=== PATIENT | female | born 1990 | race Caucasian/White ===

== ENCOUNTER 2020-12-28 03:35 | Inpatient (IN) | payer BC ==
[2020-12-28] MEDS ORDERED: OXYTOCIN 10 UNIT/ML 1 ML VIAL IM PRN (04:54)
[2020-12-28] MEDS ORDERED: CARBOPROST TROMETHAMINE 250 MCG/ML 1 ML AMP IM PRN (04:54)
[2020-12-28] MEDS ORDERED: METHYLERGONOVINE 0.2 MG/ML 1 ML AMP IM PRN (04:54)
[2020-12-28] MEDS ORDERED: LIDOCAINE 0.5% (PF) 5 MG/ML (50 ML SDV) SQ PRN (04:54)
[2020-12-28] MEDS ORDERED: TERBUTALINE 1 MG/ML VIAL SQ PRN (04:54)
[2020-12-28] MEDS ORDERED: PENICILLIN G POTASSIUM 5,000,000 UNIT in DEXTROSE 5% IN WATER 100 ML IVPB ONE ×2 (05:00)
[2020-12-28] MEDS: LACTATED RINGERS 1,000 ML IV SCH ×2 (05:01→09:08)
[2020-12-28 05:42] LABS: Basophils % (A) 0 %; Eosinophils # (A) 0.1 k/uL (0-0.7); Eosinophils % (A) 1 %; HCT 36.1 % (34.0-46.0); HGB 12.7 gm/dL (11.4-16.0); Lymphocytes # (A) 2.1 k/uL (1.0-4.8); Lymphocytes % (A) 19 %; MCH 29.6 pg (25.0-35.0); MCHC 35.1 g/dL (31.0-37.0); MCV 84.6 fL (80.0-100.0); Mean Platelet Volume 8.8; Monocytes # (A) 0.7 k/uL (0-1.0); Monocytes % (A) 7 %; Neutrophils # (A) 8.3 k/uL (1.3-7.7); Neutrophils % (A) 73 %; Platelet Count 229 k/uL (150-450); RBC 4.27 m/uL (3.80-5.40); WBC 11.3 k/uL (3.8-10.6)
[2020-12-28] MEDS ORDERED: BUTORPHANOL 1 MG/ML 1 ML VIAL IV PRN (05:50)
[2020-12-28] MEDS: OXYTOCIN 30 UNITS/500 ML NS 30 UNIT in SALINE 1 500ML.BAG IV SCH ×2 (07:34→13:13)
[2020-12-28] MEDS ORDERED: SODIUM CHLORIDE 0.9% 100 ML BAG ONE (08:46)
[2020-12-28] MEDS ORDERED: fentaNYL (PF) 50 MCG/ML 5 ML AMP ONE (08:46)
[2020-12-28] MEDS ORDERED: ROPIVACAINE 5MG/ML 20ML VIAL ONE (08:46)
[2020-12-28] MEDS ORDERED: PENICILLIN G POTASSIUM 2,500,000 UNIT in DEXTROSE 5% IN WATER 100 ML IVPB SCH ×2 (09:00)
--- NOTE | 2020-12-28 09:25 | HP ---
HISTORY AND PHYSICAL DATE OF ADMISSION: 12/28/2020 This is a 30-year-old white female 3, para 2-0-0-2, EDC 01/05/2021 at 38 and 6/7 weeks gestation who presented from home in active spontaneous labor. Fetus has been active throughout the . She denies vaginal bleeding or fluid leakage. Obstetric history is significant for blood type B positive, rubella immune. VDRL testing, urine culture, hepatitis B surface antigen, HIV testing, gonorrhea and chlamydia cultures all negative. One hour Glucola 126. Group B strep culture is positive. PAST MEDICAL HISTORY: Essentially unremarkable. PAST SURGICAL HISTORY: Appendectomy 2011, wisdom teeth extracted age 18. CURRENT MEDICATIONS: vitamins daily. ALLERGIES: None known. SOCIAL HISTORY: Patient is a teacher. She is to her , Jamie. She has never been a tobacco smoker and denies alcohol or drug use. OBSTETRIC HISTORY: Significant for 2 spontaneous vaginal deliveries, 2016 and 2018, both healthy female infants. PHYSICAL EXAMINATION: On exam, patient is 6 feet 0 inches, 204 pounds, blood pressure 132/79, pulse 100. General physical exam is within normal limits. Cervix is 8 cm dilated, 80% effaced, -1 station, vertex presentation. Artificial amniorrhexis reveals clear fluid. heart rate is consistent with reactive NST. Uterine contractions are occurring irregularly of [id number]-[id number] intensity. IMPRESSION: A 39-6/7 weeks intrauterine , active spontaneous labor. All signs reassuring. Positive group B strep cultures, first dose of penicillin G has already been infused. PLAN: Analgesic options are reviewed. Patient is requesting epidural now. Anesthesia is in the room, performing the procedure at this time. Continue close maternal and surveillance. Anticipate normal spontaneous vaginal delivery. MMODL / IJN: [id number] /
[2020-12-28] MEDS ORDERED: LANOLIN CREAM 5 GM TUBE TOPICAL PRN (11:27)
[2020-12-28] MEDS ORDERED: diphenhydrAMINE 25 MG CAP PO PRN (11:27)
[2020-12-28] MEDS ORDERED: SIMETHICONE 80 MG CHEWABLE PO PRN (11:27)
[2020-12-28] MEDS ORDERED: HYDROCORTISONE 2.5% RECTAL CREAM 30 GM TUBE RECTAL PRN (11:27)
[2020-12-28] MEDS ORDERED: diphenhydrAMINE ELIXIR 25 MG/10 ML CUP PO PRN (11:27)
[2020-12-28] MEDS ORDERED: ZOLPIDEM 5 MG TAB PO PRN (11:27)
[2020-12-28] MEDS ORDERED: BENZOCAINE/MENTHOL SPRAY 1 GM/SPRAY AEROSOL TOPICAL PRN (11:27)
[2020-12-28] MEDS ORDERED: diphenhydrAMINE 50 MG CAP PO PRN (11:27)
[2020-12-28] MEDS ORDERED: ACETAMINOPHEN TAB 325 MG TAB PO PRN (11:27)
[2020-12-28] MEDS ORDERED: diphenhydrAMINE 50 MG/ML 1 ML VIAL IVP PRN ×2 (11:27)
--- NOTE | 2020-12-28 11:27 | P.PROBDLV ---
Vaginal Delivery Note - . Vaginal Delivery Note: This is a 30-year-old white female 3 para 2001 EDC consistent with 38- 6/7 weeks' gestation who presented from home and active spontaneous labor. is essentially unremarkable, positive group B strep cultures, blood type B positive. Please see history and physical for details. Epidural was placed per her request. Artificial amniorrhexis revealed clear fluid. She progressed well through the first stage of labor and became completely dilated at 1012 hours. She began the second stage of labor at that time. Perineal body was prepped and draped in usual sterile fashion. heart tones were reassuring throughout the first and second stages of labor. With excellent maternal expulsive efforts the 's head crowned occiput anterior and restituted accordingly. There was a nuchal cord 1 that was reduced. The left or anterior shoulder was easily delivered from underneath the pubic symphysis at which time the oropharynx, nasopharynx, and external nares were all bulb suctioned. Patient was officially delivered of a liveborn male at 1028 hours. Umbilical cord was doubly clamped and ligated, he was handed to waiting nurses for evaluation where scores of 9 and 9 at one and 5 minutes respectively were given. Placenta delivered spontaneously, it was inspected and noted to be intact with trivascular cord at 1031 hrs. Uterus is then massaged. Careful inspection of the cervix, vagina, perineum, periurethral, and perirectal areas revealed no lacerations and no defects. Bleeding was slightly brisk, immediately alleviated by one dose of Methergine IM. Total estimated blood loss 300 mL's. 's weight 3350 g or 7 lbs. 6 oz. Patient is requesting circumcision for her son. All sponge needle and enhancement counts are correct at the end of the procedure. Patient and her are allowed to begin the bonding experience in the LDR.
[2020-12-28] MEDS: IBUPROFEN 600 MG TAB PO SCH (13:34)
[2020-12-29] MEDS: SENNOSIDES-DOCUSATE SODIUM 1 EACH TAB PO SCH ×2 (00:33→11:38)
[2020-12-29] MEDS: IBUPROFEN 600 MG TAB PO SCH ×2 (00:33→05:20)
[2020-12-29 08:06] VITALS: BP 121/70; PULSE 83; RESP 16; TEMP 98
--- NOTE | 2020-12-29 08:54 | P.DS ---
Providers Date of admission: 12/28/20 04:51 Expected date of discharge: 12/29/20 Attending physician: Suyapa Bass Primary care physician: Stated None Hospital Course: This is a 30-year-old white female 3 para 2001 EDC 01/05/2021 at 38-6/7 weeks' gestation. Patient presented in active spontaneous labor from home. remarkable for rubella status immune, blood type B positive, group strep cultures positive. Please see admitting history and physical for details. Penicillin G was given per hospital protocol, 2 doses received. Oxytocin augmentation was started. Epidural was placed per her request. She went on to deliver vaginally a liveborn male infant with scores of 9 and 9 at one and 5 minutes respectively. weighed 7 lbs. 6 oz. or 3350 g. No perineal lacerations were encountered. There was a nuchal cord 1 easily reduced. Please see dictated delivery note for details. This morning the patient is doing very well. She is voiding, ambulating, passing flatus without difficulty. Vital signs are stable and she is afebrile. Fundus is firm and in the midline, symmetric and 18 week size. Extremities are negative for edema. [place] is doing well. Breast-feeding is going well. Patient is judged to be in excellent condition for discharge home. She will follow-up with me in the office in 6 weeks. I have reminded her no intercourse, tampons or douching. She will use [id number]-nlmyify Advil or Aleve, or Motrin as needed for pain. She will call with any fevers shakes or chills, foul smelling or copious lochia, with the passage of large blood clots, or indeed with any difficulties or concerns. Assessment: Doing well day #1 Patient Condition at Discharge: Good Plan - Discharge Summary Discharge Rx Participant: No New Discharge Prescriptions: No Action [id number]-[id number] Acid [-U Capsule] 1 cap PO DAILY Discharge Medication List Mtl-Mlww-Htarq Acid [-U Capsule] 1 cap PO DAILY 11/06/15 [History] Follow up Appointment(s)/Referral(s): Suyapa Bass MD [STAFF PHYSICIAN] - 6 Weeks Discharge Disposition: HOME SELF-CARE
== END 2020-12-29 11:39 | disposition home or self-care (01) | DRG 807 ==
LOC: FBPOP 03:35 → 4FBP 04:51
PROVIDERS: ADMIT Obstetrics & Gynecology; ATTEND Obstetrics & Gynecology
PROC: 10E0XZZ Delivery of Products of Conception, External Approach (ICD-10-PCS; principal; 2020-12-28)
DX: O69.81X0 Labor and delivery complicated by cord around neck, without compression, not applicable or unspecified (principal); Z37.0 Single live birth; Z3A.38 38 weeks gestation of pregnancy
CPT/HCPCS: 59025; 85025; 86850; 86900; 86901; 99213